=== PATIENT | male | born 1945 | race Caucasian/White ===

== ENCOUNTER → 2016-12-10 | Outpatient (CLI) | payer OTHER ==
[~2016-12-10] MED LIST: AMLO-110 PO; AMOX500T PO; CHOL2000 PO; FINA5TAB PO; FURO40TA3 PO; GLC/500 PO; HMLI SC; INSDGI SC; IRBE-39 PO; NEBI10TA2 PO; ROSU20TA PO; SERT50TA PO; VITA100C2 PO
[2016-12-10 12:47] LABS: ESTIMATED AVERAGE GLUCOSE 249 mg/dl; HA1C FLAG Normal (Normal)
== END | disposition home or self-care (01) ==
LOC: C.LABBFT 10:32
PROVIDERS: ATTEND Nurse Practitioner Family
DX: E11.65 Type 2 diabetes mellitus with hyperglycemia (principal)

== ENCOUNTER → 2017-03-12 | Outpatient (CLI) | payer OTHER ==
[2017-03-12 16:38] LABS: BLOOD UREA NITROGEN 15 mg/dl (7-18); BUN/CREATININE RATIO 14.9 (10-20); CALCIUM 9.1 mg/dl (8.5-10.1); CARBON DIOXIDE 31 mmol/L (21-32); CHLORIDE 101 mmol/L (98-107); CHOLESTEROL 94 mg/dl (0-200); CREATININE 0.98 mg/dl (0.60-1.40); GLUCOSE 122 mg/dl (70-99); POTASSIUM 3.9 mmol/L (3.5-5.1); SODIUM 138 mmol/L (136-145); TRIGLYCERIDES 114 mg/dl (0-150); VERY LOW DENSITY LIPOPROT CALC 23 mg/dl
[2017-03-12 16:48] LABS: CHOLESTEROL/HDL RATIO 2.7; HDL CHOLESTEROL 35 mg/dl; LDL CHOLESTEROL CALCULATED 36 mg/dl
[2017-03-13 06:04] LABS: ESTIMATED AVERAGE GLUCOSE 194 mg/dl; HA1C FLAG Normal (Normal)
== END | disposition home or self-care (01) ==
LOC: C.LABBFT 11:32
PROVIDERS: ATTEND Nurse Practitioner Family
DX: E11.65 Type 2 diabetes mellitus with hyperglycemia (principal)

== ENCOUNTER → 2017-03-13 | Outpatient (CLI) | payer OTHER ==
[2017-03-13 14:14] LABS: RATIO 18.3 mcg/mg (0-30.0)
== END | disposition home or self-care (01) ==
LOC: C.LABSPEC 12:53
PROVIDERS: ATTEND Nurse Practitioner Family
DX: E11.65 Type 2 diabetes mellitus with hyperglycemia (principal)

== ENCOUNTER → 2017-04-28 | Outpatient (CLI) | payer OTHER | END | disposition home or self-care (01) | LOC: C.LABBFT 12:38 | PROVIDERS: ATTEND Internal Medicine | DX: S81.809A Unspecified open wound, unspecified lower leg, initial encounter (principal); X58.XXXA Exposure to other specified factors, initial encounter ==

== ENCOUNTER → 2017-05-01 | Outpatient (CLI) | payer OTHER ==
--- NOTE | 2017-05-01 13:43 | DIAGNOSTIC IMAGING REPORT ---
LEFT LOWER EXTREMITY VENOUS DOPPLER CLINICAL HISTORY: Left leg pain and swelling. COMPARISON STUDY: No previous studies for comparison. TECHNIQUE: Sonography of the deep venous system of the left lower extremity was performed. Compression and augmentation were evaluated. FINDINGS: The left common femoral, superficial femoral and popliteal veins were compressible. Augmentation was normal. Flow was shown within the deep calf vessels. IMPRESSION: No evidence of deep venous thrombus within the left lower extremity. Electronically signed by: Doni Fuentes M.D. 05/01/2017 1:42 PM Dictated Date/Time: 05/01/2017 1:41 PM
== END | disposition home or self-care (01) ==
LOC: C.ULTRBC 13:08
PROVIDERS: ATTEND Emergency Medicine
DX: R60.0 Localized edema (principal); M79.605 Pain in left leg

== ENCOUNTER → 2017-06-15 | Outpatient (CLI) | payer OTHER ==
[~2017-06-15] MED LIST changes: -AMOX500T PO; -FINA5TAB PO; -SERT50TA PO
[2017-06-16 05:37] LABS: ESTIMATED AVERAGE GLUCOSE 157 mg/dl; HA1C FLAG Normal (Normal)
== END | disposition home or self-care (01) ==
LOC: C.LABBFT 11:17
PROVIDERS: ATTEND Nurse Practitioner Family
DX: E11.65 Type 2 diabetes mellitus with hyperglycemia (principal)

== ENCOUNTER → 2017-09-24 | Outpatient (CLI) | payer OTHER | END | disposition home or self-care (01) | LOC: C.NEUR 08:44 | DX: G47.33 Obstructive sleep apnea (adult) (pediatric) (principal) ==

== ENCOUNTER → 2017-11-10 | Outpatient (CLI) | payer OTHER ==
[2017-11-10 17:50] LABS: BLOOD UREA NITROGEN 12 mg/dl (7-18); CALCIUM 9.1 mg/dl (8.5-10.1); CARBON DIOXIDE 29 mmol/L (21-32); CREATININE 0.82 mg/dl (0.60-1.40); GLUCOSE 210 mg/dl (70-99); POTASSIUM 4.6 mmol/L (3.5-5.1); SODIUM 135 mmol/L (136-145)
[2017-11-11 06:17] LABS: HEMOGLOBIN A1C 7.9 % (4.5-5.6)
== END | disposition home or self-care (01) ==
LOC: C.LABBFT 13:46
PROVIDERS: ATTEND Nurse Practitioner Family
DX: E11.29 Type 2 diabetes mellitus with other diabetic kidney complication (principal)

== ENCOUNTER → 2017-11-11 | Outpatient (CLI) | payer OTHER | END | disposition home or self-care (01) | LOC: C.LABSPEC 18:13 | PROVIDERS: ATTEND Nurse Practitioner Family | DX: E11.29 Type 2 diabetes mellitus with other diabetic kidney complication (principal) ==

== ENCOUNTER → 2017-11-23 | Outpatient (CLI) | payer OTHER ==
--- NOTE | 2017-11-24 05:58 | PAP/PSG TECHNICIAN REPORT ---
[facility] Correction Warden Polysomnogram Report Study name: None Report date: 11/24/2017 Study date: 11/23/2017 Referring Physician: Dr. Rudd Name: JONATHON MARTINEZ Interpreting Physician: Fran Rudd D.O. Date of : 1945 Correction Warden: Kang Antonio RPSGT. Sex: Male Age: 72 StudyType: PSG Weight: 351 lbs 19.5 inches Height: 72 years, Height 5' 10" Neck Circum: BMI: 50.36 Medications: LANTUS SOLOSTAR 100 UNIT/ML, METFORMIN HCL 1000 MG, VITAMIN B-12 1000 MCG, ROSUVASTATIN CALCIUM 40 MG, FUROSEMIDE 40 MG, IRBESARTAN 300 MG, METOPROLOL SUCCINATE ER 100 MG, Patient History PATIENT HAS HISTORY OF DIABETES AND HYPERTENSION. ALSO HAS HISTORY OF SNORING AND DAYTIME SLEEPINESS. HE GENERALLY TAKES A NAP AND FEELS VERY SLEEPY AFTER DINNER TIME. HE IS HERE TODAY FOR AN EVALUATION FOR KRISSY. ESS = 5 RM 6 Parameters Monitored NPSG: E1-M2, E2-M1, Fp1-M2, Fp2-M1, F3-M2, F4-M2, F4-M1, C3-M2, C4-M2, C4-M1, O1-M2, O2-M2, O2-M1, T3-M2, T4-M1, P3-M2, P4-M1, CHIN1, CHIN2, HR, EKG, Legs, PFLOW, SNOR, FLOW, CFLOW, Tidal Volume, THOR, ABDO, SpO2, PLTH, CPRESS, ETCO2 Wave, ETCO2, pH Sleep Architecture Sleep Stages Time at Lights Off 10:41:37 PM STAGES Time (min.) TST (%) Time at Lights On 5:32:07 AM Wake 117.0 -- Total Recording Time (TRT) 411.00 min. N1 35.5 12 Total Sleep Period (TSP) 397.5 min. N2 181.0 62 Total Sleep Time (TST) 293.5min. N3 49.0 17 Awake Time 117.0 min. REM 28.0 10 Wake after Sleep Onset 104.0 min. Sleep Efficiency (SE) 71 % Sleep Onset Latency (KARTHIK) 13.0 min. Number of Stage 1 Shifts None Awakenings 26 Stage Changes 82 Number of REM periods 2 REM 28.0 10 REM Latency 86.5 min. NREM 265.5 90 Body Position Analysis Supine Right Left Side Prone Vertical Total Sleep Time (min.) 162.9 0.0 205.0 205.00 0.0 0.0 Total Sleep Time (%) 30% 0% 70% 70 0% N/A% Total Sleep Time REM (min.) 0.0 0.0 28.0 None 0.0 0.0 Total Sleep Time NREM (min.) 88.5 0.0 177.0 None 0.0 0.0 Intermittent Wake (min.) 74.4 0.0 42.6 None 0.0 0.0 Total Sleep Period (%) 38% None None None None None Arousals Myoclonus (PLM) * Events Count Index Events Count Index Spontaneous 69 14 Events Awake (PLMW) 199 102.1 Respiratory 42 8.6 Events Asleep w/ Arousal (PLMA) 40 8.2 PLM 40 8 Events Asleep w/o Arousal (PLMS) 561 114.7 Snoring 6 1 Total Asleep 601 122.9 Total 157 32 Total 800 117 Respiratory Analysis * CA OA MA CH H RERA Total Count 0 13 0 0 61 15 74 Index 0.0 2.7 0.0 0 12.5 3 18.2 Mean Duration 0.0 19.4 0.0 0.00 22.2 15.3 20.6 Longest Duration 0.0 32.3 0.0 0.00 0.0 19.3 49.5 Respiratory Event Summary Total Supine ~Supine Right Left Prone REM NREM Apneas Count 13 5 8 N/A 8 N/A 7 6 Index 2.7 3 2 N/A 2.3 N/A 15 1 Hypopneas (4% Desat) Count 61 42 19 N/A 19 N/A 10 51 Index 12.5 28.5 6 N/A 5.6 N/A 21.4 11.5 Apneas & All Hypopneas Count 74 47 27 N/A 27 N/A 17 57 Index 15.1 32 8 N/A 8 N/A 36.4 12.9 Respiratory Events (Core Sticker+All Hyp+RERA) Count 74 60 29 N/A 29 N/A 17 57 Index 18.2 41 8 N/A 8.5 N/A 36.4 16.3 Respiratory Related Arousal Count 42 60 7 N/A 7 N/A 3 39 Index 8.6 24 2 N/A 2 N/A 6 9 Snoring Analysis Supine Right Left Prone REM NREM Total Snore duration 2.5 min Snores count 22 N/A 85 N/A 45 62 107 Snore mean duration 1.4 Sec Snores index 15 N/A 25 N/A 96.4 14.0 21.9 TST with snoring (%) 0.9% Desaturation Event Summary: Minimum %SpO2 Event Count Mean/Min/Max Duration(sec.) Desaturation Index % Time In Bed > 90 67 28.7 / 12.0 / 63.7 10.4 94.0 86 - 90 3 43.8 / 30.3 / 53.8 11.1 4.0 81 - 85 4 46.4 / 30.3 / 75.8 44.2 1.3 76 - 80 1 38.0 / 38.0 / 38.0 23.5 0.6 71 - 75 0 N/A 0.0 0.1 66 - 70 0 N/A 0.0 0.0 61 - 65 0 N/A 0.0 0.0 56 - 60 0 N/A 0.0 0.0 51 - 55 0 N/A 0.0 0.0 < 50 0 N/A 0.0 0.0 Total REM NREM Awake <50% 0.0 min. 0.0 min. 0.0 min. 0.0 min. 51 - 60% 0.0 min. 0.0 min. 0.0 min. 0.0 min. 61 - 70% 0.0 min. 0.0 min. 0.0 min. 0.0 min. 71 - 80% 3.1 min. 3.1 min. 0.0 min. 0.0 min. 81 - 90% 21.7 min. 17.3 min. 2.7 min. 1.7 min. 91 - 100% 385.3 min. 7.7 min. 262.8 min. 114.9 min. Average 93 87 93 93 Minimum SpO2 74 74 86 88 Desaturation Event Index 10.8 27.9 11.3 5.6 # Desat. Events below 89% 15 13 2 N/A Time(%) with Saturation below 89% 3.9 3.8 0.1 0.0 Time(min.) with Saturation below 89% 15.9 15.5 0.3 0.1 Time (mins) REM (mins) NREM (mins) % of TST SpO2 Below 90% 29 13 N16 6.5 SpO2 Below 88% 10 0 0 4 Heart Rate Analysis Min (bpm) Max (bpm) Average (bpm) Awake 40 71 51 NREM 38 59 46 REM 42 77 51 Overall 38 77 46 Supplemental O2 Values Minimum O2 level: None Value Start Time End Time Correction Warden Comments Mr. Martinez slept in the supine and left positions. PVC's noted. Leg movements noted. No bruxism noted. Snoring was noted and scored as a 3 on a scale of 1 through 5. (0=no snoring, 5=snoring loud enough to be heard through a closed door or down the bustillo way) Mr. Martinez awoke to use the restroom 0 times during the night. Mr. Martinez stated I did not sleep as well as I do when I am in my own bed. The final report will be interpreted and signed by a sleep physician. The completed physician report will then be placed in the patient medical record. Therapy (cm H2O) 0 TIB (min.) 410.5 TST (min.) 293.5 Sleep Onset (min.) 13.0 REM Onset From Sleep (min.) 86.5 Sleep Efficiency % 71 Wakefulness (%) 29 Wakefulness (min.) 117.0 NREM 1 (%) 12 NREM 1 (min.) 35.5 NREM 2 (%) 62 NREM 2 (min.) 181.0 NREM 3 (%) 17 NREM 3 (min.) 49.0 REM (%) 10 REM (min.) 28.0 # Arousals 157 Arousal Index 32 # Snore 107 Snore Index 21.9 AHI 15.1 AHI Supine 32 AHI Non-Supine 8 NREM AHI 12.9 REM AHI 36.4 RDI 18.2 # Obstructive Apnea 13 # Central Apnea 0 # Mixed Apnea 0 # Hypopneas 61 RERAs 15 Total Respiratory Events 89 Time Below SpO2 89% (min.) 15.7 Mean NREM SpO2 (%) 93 Mean REM SpO2 (%) 87 Mean Sleep SpO2 (%) 93 Min NREM SpO2 (%) 86 Min REM SpO2 (%) 74 Position Supine (min.) 162.9 Position Non-supine (min.) 205.0 LM Index Sleep 122.9 LM Index NREM 132.0 LM Index REM 36.4 Mean Heart Rate (bpm) 46 Min Heart Rate (bpm) 38
--- NOTE | 2017-11-25 14:11 | POLYSOMNOGRAPH REPORT ---
CLINICAL DATA: The patient is a 72-year-old male referred by Dr. Hall. He has a history of snoring and daytime tiredness. His Seeley Sleepiness Scale score is 5. This was an in-lab overnight polysomnography. SLEEP ARCHITECTURE: The total sleep period was 397.5 minutes. The total sleep time was 293.5 minutes. The sleep efficiency was moderately reduced to 71%. The sleep latency was 13 minutes. Wake after sleep onset was increased to 104 minutes. The REM latency was 86.5 minutes which is normal. Sleep includes stage N1 12%, stage N2 62%, stage N3 17%, stage REM 10%. AROUSAL DATA: The patient had a total of 157 arousals including 69 spontaneous arousals, 42 respiratory arousals, 40 PLM arousals and 6 snoring arousals. The arousal index was 32. PERIODIC LIMB MOVEMENT DATA: The patient had a total of 601 periodic limb movements of sleep for a PLM index of 122.9. There were 40 arousals associated with limb movements for a PLM arousal index of 8.2. EKG: The underlying cardiac rhythm was normal sinus. There was a relatively sparse number of PVCs noted. The cardiac rates ranged from 38-77 beats per minute. The average heart rate was 46 beats per minute. RESPIRATORY DATA: The patient had a total of 74 respiratory events including 13 obstructive apneas and 61 hypopneas. Hypopneas were scored according to the 4% desaturation rule. He also had 15 RERAs. The longest apnea was 32.3 seconds. The mean duration of hypopneas was 22.2 seconds. The apnea-hypopnea index was moderately elevated at 15.1 events per hour. This would reflect moderate obstructive sleep apnea. OXIMETRY DATA: The average saturation for the night was 93%. The minimum saturation was 74%. There was a total of 15.9 minutes with saturations less than 89%. The major desaturations occurred during REM sleep. INTELLIGENT SYSTEMS ENGINEER COMMENTS: The patient slept in the supine and left positions. PVCs were noted. Leg movements noted. No bruxism noted. Snoring was noted and scored as a 3 on a scale of 1 through 5. The patient stated he did not sleep as well as he does when he is in his own bed. IMPRESSION: 1. Moderate obstructive sleep apnea. 2. Periodic limb movement disorder. COMMENTS: The patient has moderate sleep apnea. He did have decreased sleep efficiency. He had very frequent limb movements but with relatively few arousals. He did not give any suggestion of restless legs clinically. He had some transient oxygen desaturations which occurred during REM sleep at the time he was having respiratory events. Comorbidities include diabetes mellitus. RECOMMENDATIONS: 1. It is advised that the patient be given a trial of nasal CPAP. 2. No treatment is necessary at present for the underlying limb movement disorder. 3. It may be of value to check a serum ferritin level in light of the limb movements. 4. Weight loss is advised in light of the severe elevation of body mass index of 50.36. 5. It is suggested that the patient avoid sleeping in the supine position.
== END | disposition home or self-care (01) ==
LOC: C.NEUR 21:00
PROVIDERS: ATTEND Internal Medicine Pulmonary Disease
DX: G47.33 Obstructive sleep apnea (adult) (pediatric) (principal)

== ENCOUNTER → 2017-12-17 | Outpatient (CLI) | payer OTHER ==
[~2017-12-17] VITALS: Ht 177.8 cm; Wt 341.0 kg
[2017-12-17 14:58] VITALS: BP 182/74; PULSE 57; Ht 177.8 cm; Wt 341.0 kg
[2017-12-17 14:59] VITALS: BP 197/77; PULSE 54
== END | disposition home or self-care (01) ==
LOC: C.NEUR 13:07
PROVIDERS: ATTEND Internal Medicine Pulmonary Disease
DX: G47.61 Periodic limb movement disorder (principal)

== ENCOUNTER → 2017-12-17 | Outpatient (CLI) | payer OTHER ==
--- NOTE | 2018-01-01 14:00 | CODING QUERY NO DIAGNOSIS ---
TREATMENT RENDERED WITHOUT A DIAGNOSIS DATE OF SERVICE:12/17/17 To promote full compliance with coding requirements relating to patient care, physician participation is requested in all cases of deicer element winder machine uncertainty. Please assist us with providing a diagnosis/symptom for the test(s) below: A diagnosis/symptom was not documented on your Order. A valid diagnosis/symptom is required to bill all insurances. Please remember that we are unable to code a diagnosis of rule out, probable, possible, questionable, or suspected. Tests that require a diagnosis: * FERRITIN DIAGNOSIS: PLEASE BE SURE YOU HAVE ADDED A DIAGNOSIS BEFOR SIGNING Provider Signature: Date: Thank you Maureen Schwartz Health Information Management Once completed, please kindly fax back to [phone] For questions please call [phone]
== END | disposition home or self-care (01) ==
LOC: C.LABBC 13:57
PROVIDERS: ATTEND Internal Medicine Pulmonary Disease
DX: G47.61 Periodic limb movement disorder (principal)

== ENCOUNTER → 2018-04-26 | Outpatient (CLI) | payer OTHER ==
[~2018-04-26] MED LIST changes: -AMLO-110 PO; +CYAN100020 PO; -FURO40TA3 PO; -GLC/500 PO; -HMLI SC; +INSU100I SC; -IRBE-39 PO; +IRBE1TAB50 PO; +METF1000 PO; +METO100T44 PO; -NEBI10TA2 PO; +NEBI20TA2 PO; -ROSU20TA PO; +ROSU40TA PO; -VITA100C2 PO
--- NOTE | 2018-04-26 10:17 | DIAGNOSTIC IMAGING REPORT ---
TWO VIEW CHEST CLINICAL HISTORY: Preoperative examination. FINDINGS: PA and lateral chest radiographs are compared to study dated 11/02/2014 and correlated with chest CT dated 09/14/2013. The heart is enlarged and there is mild atherosclerotic calcification of the thoracic aorta. The pulmonary vasculature is noncongested. Chronic interstitial thickening is similar to previous. No airspace consolidation or pleural effusion is identified. There is no pneumothorax. The skeletal structures are osteopenic. Degenerative change is noted in the thoracic spine. There are healed left-sided rib fractures. IMPRESSION: Mild cardiac enlargement with no active disease in the chest. Electronically signed by: Abdiel Alfred M.D. 04/26/2018 10:16 AM Dictated Date/Time: 04/26/2018 10:15 AM
[2018-04-26 10:31] LABS: BASO % 0.5 %; BASO ABS # 0.04 K/uL (0-0.2); EOS % 1.7 %; EOS ABS # 0.13 K/uL (0-0.5); HEMATOCRIT 43.5 % (42-52); HEMOGLOBIN 14.7 g/dL (14.0-18.0); IG# 0.01 K/uL (0.00-0.02); LYMPH % 22.8 %; LYMPH ABS # 1.73 K/uL (1.2-3.4); MEAN CORPUSCULAR HEMOGLOBIN 28.4 pg (25-34); MEAN CORPUSCULAR HGB CONC 33.8 g/dl (32-36); MEAN PLATELET VOLUME 11.3 fL (7.4-10.4); MONO % 15.3 %; MONO ABS # 1.16 K/uL (0.11-0.59); NEUT % 59.6 %; NEUT ABS # 4.52 K/uL (1.4-6.5); PLATELET COUNT 230 K/uL (130-400); RED CELL DISTRIBUTION WIDTH CV 15.2 % (11.5-14.5); RED CELL DISTRIBUTION WIDTH SD 46.7 fL (36.4-46.3); WHITE BLOOD COUNT 7.59 K/uL (4.8-10.8)
[2018-04-26 10:38] LABS: BLOOD UREA NITROGEN 10 mg/dl (7-18); CALCIUM 8.8 mg/dl (8.5-10.1); CARBON DIOXIDE 31 mmol/L (21-32); CREATININE 0.91 mg/dl (0.60-1.40); GLUCOSE 65 mg/dl (70-99); POTASSIUM 4.3 mmol/L (3.5-5.1); SODIUM 140 mmol/L (136-145)
[2018-04-26 10:39] LABS: PTT PATIENT 28.4 SECONDS (21.0-31.0)
[2018-04-26 11:20] LABS: HEMOGLOBIN A1C 7.7 % (4.5-5.6)
== END | disposition home or self-care (01) ==
LOC: C.CPL 08:53
PROVIDERS: ATTEND Orthopaedic Surgery
DX: Z01.810 Encounter for preprocedural cardiovascular examination (principal); Z01.812 Encounter for preprocedural laboratory examination